=== PATIENT | male | born 1955 | race Caucasian/White ===

== ENCOUNTER 2018-06-24 08:02 | Inpatient (IN) | payer BC ==
[2018-06-17 11:17] LABS: BILIRUBIN,URINE NEGATIVE (NEGATIVE); BLOOD, URINE NEGATIVE (NEGATIVE); CLARITY/URINE SL HAZY (CLEAR); COLOR,URINE YELLOW (YELLOW); GLUCOSE,URINE NEGATIVE (NEGATIVE); KETONES,URINE NEGATIVE (NEGATIVE); LEUKOCYTE ESTERASE ,URINE NEGATIVE (NEGATIVE); NITRITE, URINE NEGATIVE (NEGATIVE); PH,URINE 5.5 (5.0-8.0); PROTEIN URINE NEGATIVE (NEGATIVE); UROBILINOGEN,URINE 0.2 (0.2-1.0)
[2018-06-17 11:41] LABS: CALCIUM 9.4 mg/dL (8.4-11.0); CREATININE 0.93 mg/dL (0.55-1.30); POTASSIUM 4.2 mmol/L (3.5-5.1)
[2018-06-17 12:12] LABS: BASOPHILS % (AUTO) 0.9 % (0.0-2.0); EOSINOPHILS % (AUTO) 2.8 % (0.0-4.0); HEMATOCRIT 48.8 % (36-54); HEMOGLOBIN 16.6 g/dL (14.0-18.0); LYMPHOCYTES # (AUTO) 1.4 K/uL (1.0-5.5); LYMPHOCYTES % (AUTO) 14.4 % (20.5-51.5); MEAN CORPUSCULAR HEMOGLOBIN 31 pg (27-31); MEAN CORPUSCULAR HGB CONC 34 % (32-36); MEAN CORPUSCULAR VOLUME 90 fL (79.0-98.0); MONOCYTES % (AUTO) 7.3 % (1.7-9.3); PLATELET COUNT (AUTO) 89 K/uL (130-430); RED BLOOD CELL COUNT(AUTO) 5.45 MIL/uL (4.2-6.2); RED CELL DISTRIBUTION WIDTH 13.5 % (9.0-15.0); WHITE BLOOD COUNT (AUTO) 9.4 K/uL (4.8-10.8)
[2018-06-17 12:13] LABS: BASOPHILS # (AUTO) 0.1 K/uL (0.0-0.2); EOSINOPHILS # (AUTO) 0.3 K/uL (0.0-0.4); MONOCYTES # (AUTO) 0.7 K/uL (0.0-1.0)
[2018-06-17 13:49] LABS: NEUTROPHILS % (AUTO) 74.6 % (40.0-70.0)
[~2018-06-24] VITALS: Ht 182.9 cm; Wt 109.8 kg
[~2018-06-24 08:02] MED LIST: GLU500 PO; IRBE300T40 PO; LIP20 PO; PRO40 PO; TAMS-11 PO; VITD2000 PO
[2018-06-24] MEDS ORDERED: CEFAZOLIN SOD 2 GM in D5W 50 ML IV ONE (08:15)
[2018-06-24 08:37] LABS: BASOPHILS # (AUTO) 0.1 K/uL (0.0-0.2); EOSINOPHILS # (AUTO) 0.3 K/uL (0.0-0.4); EOSINOPHILS % (AUTO) 2.8 % (0.0-4.0); HEMATOCRIT 50.9 % (36-54); HEMOGLOBIN 16.9 g/dL (14.0-18.0); LYMPHOCYTES # (AUTO) 1.3 K/uL (1.0-5.5); LYMPHOCYTES % (AUTO) 14.1 % (20.5-51.5); MEAN CORPUSCULAR HEMOGLOBIN 30 pg (27-31); MEAN CORPUSCULAR HGB CONC 33 % (32-36); MEAN CORPUSCULAR VOLUME 91 fL (79.0-98.0); MONOCYTES # (AUTO) 0.8 K/uL (0.0-1.0); MONOCYTES % (AUTO) 8.1 % (1.7-9.3); RED BLOOD CELL COUNT(AUTO) 5.58 MIL/uL (4.2-6.2); RED CELL DISTRIBUTION WIDTH 13.3 % (9.0-15.0); WHITE BLOOD COUNT (AUTO) 9.4 K/uL (4.8-10.8)
[2018-06-24 09:13] LABS: PLATELET COUNT (AUTO) 96 K/uL (130-430)
[2018-06-24] MEDS: ROPIVACAINE 0.2% 100 ML INJ SCH ×2 (10:06→21:40)
[2018-06-24] MEDS ORDERED: DIPHENHYDRAMINE INJ 50 MG/ML VIAL IVP PRN ×2 (10:15)
[2018-06-24] MEDS ORDERED: NALBUPHINE HCL 10 MG/ML AMP IVP PRN ×2 (10:15)
[2018-06-24] MEDS ORDERED: ONDANSETRON HCL 4 MG/2 ML VIAL IVP PRN ×2 (10:15)
[2018-06-24] MEDS ORDERED: KETOROLAC TROMETHAMINE 60 MG/2 ML VIAL IM PRN (10:15)
[2018-06-24] MEDS ORDERED: OXYCODONE/ACETAMINOPHEN *10*mg/325 mg TABLET PO PRN (10:15)
[2018-06-24] MEDS ORDERED: fentaNYL CITRATE/PF 100 MCG/2 ML AMP IVP PRN ×2 (10:15)
[2018-06-24] MEDS ORDERED: MORPHINE SULFATE 10MG/10ML PF AMP SP SCH (10:15)
[2018-06-24] MEDS ORDERED: NALOXONE HCL 0.4 MG/ML AMP (NARCAN) IVP PRN ×2 (10:15)
[2018-06-24] MEDS: VANCOMYCIN HCL 1,000 MG in NS 250 ML IV ONE ×2 (10:43→11:25)
[2018-06-24] MEDS ORDERED: NS IRRIG SOLN 1000 ML IR ONE (11:35)
[2018-06-24] MEDS ORDERED: BUPIVACAINE /PF 0.75% 10 ML VIAL INJ ONE (11:35)
[2018-06-24] MEDS ORDERED: PROPOFOL 200MG/ 20ML VIAL (DIPRIVAN) IV ONE (11:35)
[2018-06-24] MEDS ORDERED: TRANEXAMIC ACID 1,000 MG/10 ML VIAL IV ONE (11:35)
[2018-06-24] MEDS ORDERED: MORPHINE SULFATE 10MG/10ML PF AMP EP ONE (11:35)
[2018-06-24] MEDS ORDERED: EPINEPHrine 1 MG/ML AMP IV ONE (11:35)
[2018-06-24] MEDS ORDERED: MIDAZOLAM HCL 5 MG/5 ML VIAL IVP ONE (11:35)
[2018-06-24] MEDS ORDERED: ROPIVACAINE HCL/PF 0.2% (NAROPIN) 200 ML PLAST..BAG EP ONE (11:35)
[2018-06-24] MEDS ORDERED: ROPIVACAINE HCL/PF 5 MG/ML 0.5% 30 ML VIAL INJ ONE (11:35)
[2018-06-24] MEDS ORDERED: LIDOCAINE 1% 10 MG/ML, 20 ML MDV INJ ONE (11:35)
[2018-06-24] MEDS ORDERED: LR 1,000 ML IV.SOLN IV ONE (11:35)
[2018-06-24] MEDS ORDERED: POLYMYXIN 500,000/BACIT.10,000 UNITS in NS IRR 1 L IR ONE (12:31)
[2018-06-24] MEDS: D5/0.45 NS 1,000 ML IV SCH ×2 (14:23→21:16)
[2018-06-24] MEDS ORDERED: ACETAMINOPHEN 325 MG TABLET PO PRN (14:30)
[2018-06-24 15:23] VITALS: BP_SYST 137
[2018-06-24] MEDS: HYDROcodone/ACETAMIN 10-325 MG TAB PO PRN (17:04)
[2018-06-24] MEDS ORDERED: TRANEXAMIC ACID 1,000 MG in NS 50 ML IV ONE (17:30)
[2018-06-24] MEDS: ONDANSETRON HCL 4 MG/2 ML VIAL IVP PRN ×2 (17:37→21:15)
[2018-06-24 18:03] VITALS: BP_SYST 153
[2018-06-24] MEDS ORDERED: MORPHINE SULFATE 10 MG/ML VIAL IVP ONE (18:45)
[2018-06-24 19:45] VITALS: BP_SYST 125
[2018-06-24] MEDS ORDERED: PROMETHAZINE INJ.Non-Formulary 25 MG/ML AMP IM ONE (21:00)
[2018-06-24] MEDS: SENNOSIDES 8.6 MG TABLET PO SCH (21:15)
[2018-06-24] MEDS ORDERED: MORPHINE PCA 50 mg/50 mL NS 50 ML IV PRN (22:15)
[2018-06-24] MEDS ORDERED: MORPHINE SULFATE 10 MG/ML VIAL ONE (22:46)
[2018-06-25] VITALS (7 sets, daily range): BP systolic 122–148
[2018-06-25] MEDS: D5/0.45 NS 1,000 ML IV SCH ×3 (05:24→20:16)
[2018-06-25 06:52] LABS: CALCIUM 8.3 mg/dL (8.4-11.0); CREATININE 1.11 mg/dL (0.55-1.30); POTASSIUM 4.7 mmol/L (3.5-5.1)
[2018-06-25 07:03] LABS: BASOPHILS # (AUTO) 0.1 K/uL (0.0-0.2); BASOPHILS % (AUTO) 0.6 % (0.0-2.0); EOSINOPHILS # (AUTO) 0.2 K/uL (0.0-0.4); EOSINOPHILS % (AUTO) 1.6 % (0.0-4.0); HEMATOCRIT 43.6 % (36-54); HEMOGLOBIN 14.6 g/dL (14.0-18.0); LYMPHOCYTES # (AUTO) 0.9 K/uL (1.0-5.5); LYMPHOCYTES % (AUTO) 6.9 % (20.5-51.5); MEAN CORPUSCULAR HEMOGLOBIN 31 pg (27-31); MEAN CORPUSCULAR HGB CONC 34 % (32-36); MEAN CORPUSCULAR VOLUME 92 fL (79.0-98.0); MONOCYTES # (AUTO) 1.3 K/uL (0.0-1.0); NEUTROPHILS # (AUTO) 10.2 K/uL (1.8-7.7); NEUTROPHILS % (AUTO) 80.9 % (40.0-70.0); PLATELET COUNT (AUTO) 117 K/uL (130-430); RED BLOOD CELL COUNT(AUTO) 4.75 MIL/uL (4.2-6.2); RED CELL DISTRIBUTION WIDTH 13.4 % (9.0-15.0); WHITE BLOOD COUNT (AUTO) 12.6 K/uL (4.8-10.8)
[2018-06-25] MEDS: ASCORBIC ACID 500 MG TABLET PO SCH ×2 (08:40→20:10)
[2018-06-25] MEDS: MULTIVITAMINS TAB 1 TABLET PO SCH (08:41)
[2018-06-25] MEDS ORDERED: RIVAROXABAN 10 MG TABLET PO SCH (09:00)
[2018-06-25] MEDS ORDERED: MULTIVITAMINS TAB 1 TABLET PO SCH (09:00)
[2018-06-25] MEDS: FERROUS SULFATE 140 MG TABLET.ER PO SCH (09:36)
[2018-06-25] MEDS: RIVAROXABAN 10 MG TABLET PO SCH (09:38)
[2018-06-25] MEDS: ROPIVACAINE 0.2% 100 ML INJ SCH ×2 (14:10→22:38)
[2018-06-25] MEDS ORDERED: NALOXONE HCL 0.4 MG/ML AMP (NARCAN) IVP PRN (16:15)
[2018-06-25] MEDS: SENNOSIDES 8.6 MG TABLET PO SCH (20:10)
[2018-06-26 00:30] VITALS: BP_SYST 143
[2018-06-26 04:00] VITALS: BP_SYST 135
[2018-06-26] MEDS: D5/0.45 NS 1,000 ML IV SCH ×3 (04:08→22:23)
[2018-06-26 06:55] LABS: CALCIUM 8.3 mg/dL (8.4-11.0); CREATININE 1.06 mg/dL (0.55-1.30); GLUCOSE 144 mg/dL (70-99); SODIUM SERUM 128 mmol/L (136-145); UREA NITROGEN, BLOOD 14 mg/dL (8-21)
[2018-06-26 07:02] LABS: BASOPHILS % (AUTO) 0.3 % (0.0-2.0); EOSINOPHILS # (AUTO) 0.2 K/uL (0.0-0.4); HEMATOCRIT 39.4 % (36-54); HEMOGLOBIN 13.4 g/dL (14.0-18.0); LYMPHOCYTES # (AUTO) 1.1 K/uL (1.0-5.5); LYMPHOCYTES % (AUTO) 7.1 % (20.5-51.5); MEAN CORPUSCULAR HEMOGLOBIN 31 pg (27-31); MEAN CORPUSCULAR HGB CONC 34 % (32-36); MEAN CORPUSCULAR VOLUME 91 fL (79.0-98.0); MONOCYTES # (AUTO) 1.8 K/uL (0.0-1.0); MONOCYTES % (AUTO) 11.2 % (1.7-9.3); NEUTROPHILS # (AUTO) 12.7 K/uL (1.8-7.7); NEUTROPHILS % (AUTO) 80.4 % (40.0-70.0); PLATELET COUNT (AUTO) 109 K/uL (130-430); RED BLOOD CELL COUNT(AUTO) 4.35 MIL/uL (4.2-6.2); RED CELL DISTRIBUTION WIDTH 13.2 % (9.0-15.0); WHITE BLOOD COUNT (AUTO) 15.8 K/uL (4.8-10.8)
[2018-06-26 07:13] LABS: CHLORIDE 93 mmol/L (98-107); POTASSIUM 4.5 mmol/L (3.5-5.1)
[2018-06-26 07:19] LABS: ANION GAP < 3 (5-15); GFR AFRICAN AMERICAN 90 mL/min (>90)
[2018-06-26 08:18] VITALS: BP_SYST 131
[2018-06-26] MEDS: RIVAROXABAN 10 MG TABLET PO SCH (09:18)
[2018-06-26] MEDS: MULTIVITAMINS TAB 1 TABLET PO SCH (09:18)
[2018-06-26] MEDS: ASCORBIC ACID 500 MG TABLET PO SCH ×2 (09:18→21:12)
[2018-06-26] MEDS: FERROUS SULFATE 140 MG TABLET.ER PO SCH (09:19)
[2018-06-26] MEDS: ROPIVACAINE 0.2% 100 ML INJ SCH (11:10)
[2018-06-26 12:02] VITALS: BP_SYST 149
[2018-06-26] MEDS: HYDROcodone/ACETAMIN 10-325 MG TAB PO PRN ×2 (14:40→18:44)
[2018-06-26 16:00] VITALS: BP_SYST 159
[2018-06-26 20:00] VITALS: BP_SYST 121
[2018-06-26] MEDS ORDERED: IRBESARTAN 150 MG TABLET (AVAPRO) PO SCH (20:00)
[2018-06-26] MEDS ORDERED: ZOLPIDEM TARTRATE 5 MG TABLET PO PRN (20:15)
[2018-06-26] MEDS ORDERED: PANTOPRAZOLE SODIUM 40 MG TAB PO SCH (21:00)
[2018-06-26] MEDS ORDERED: LOSARTAN POTASSIUM 50 MG TABLET (COZAAR) PO SCH (21:00)
[2018-06-26] MEDS: SENNOSIDES 8.6 MG TABLET PO SCH (21:11)
[2018-06-27] MEDS: ROPIVACAINE 0.2% 100 ML INJ SCH (00:36)
[2018-06-27 00:52] VITALS: BP_SYST 133
[2018-06-27] MEDS: D5/0.45 NS 1,000 ML IV SCH ×2 (06:23→14:23)
[2018-06-27 06:48] LABS: BASOPHILS # (AUTO) 0.1 K/uL (0.0-0.2); BASOPHILS % (AUTO) 0.3 % (0.0-2.0); EOSINOPHILS # (AUTO) 0.4 K/uL (0.0-0.4); EOSINOPHILS % (AUTO) 2.3 % (0.0-4.0); HEMATOCRIT 39.8 % (36-54); HEMOGLOBIN 13.3 g/dL (14.0-18.0); LYMPHOCYTES # (AUTO) 1.1 K/uL (1.0-5.5); LYMPHOCYTES % (AUTO) 6.5 % (20.5-51.5); MEAN CORPUSCULAR HEMOGLOBIN 30 pg (27-31); MEAN CORPUSCULAR HGB CONC 33 % (32-36); MEAN CORPUSCULAR VOLUME 91 fL (79.0-98.0); MONOCYTES # (AUTO) 1.4 K/uL (0.0-1.0); MONOCYTES % (AUTO) 8.5 % (1.7-9.3); NEUTROPHILS # (AUTO) 13.7 K/uL (1.8-7.7); NEUTROPHILS % (AUTO) 82.4 % (40.0-70.0); PLATELET COUNT (AUTO) 126 K/uL (130-430); RED BLOOD CELL COUNT(AUTO) 4.38 MIL/uL (4.2-6.2); RED CELL DISTRIBUTION WIDTH 13.4 % (9.0-15.0); WHITE BLOOD COUNT (AUTO) 16.7 K/uL (4.8-10.8)
[2018-06-27 06:52] LABS: CALCIUM 8.6 mg/dL (8.4-11.0); CREATININE 1.01 mg/dL (0.55-1.30); POTASSIUM 4.1 mmol/L (3.5-5.1)
[2018-06-27] MEDS ORDERED: PANTOPRAZOLE SODIUM 40 MG TAB PO SCH (07:30)
[2018-06-27] MEDS ORDERED: metFORMIN HCL 500 MG TABLET PO SCH (08:00)
[2018-06-27 08:18] VITALS: BP_SYST 124
[2018-06-27] MEDS: ASCORBIC ACID 500 MG TABLET PO SCH (08:22)
[2018-06-27] MEDS: MULTIVITAMINS TAB 1 TABLET PO SCH (08:22)
[2018-06-27] MEDS: HYDROcodone/ACETAMIN 10-325 MG TAB PO PRN ×2 (08:23→12:44)
[2018-06-27] MEDS: FERROUS SULFATE 140 MG TABLET.ER PO SCH (08:23)
[2018-06-27] MEDS ORDERED: CHOLECALCIFEROL (VITAMIN D3) 2,000 UNIT TABLET PO SCH (09:00)
[2018-06-27] MEDS ORDERED: LOSARTAN POTASSIUM 50 MG TABLET (COZAAR) PO SCH (09:00)
[2018-06-27] MEDS ORDERED: DIPHENHYDRAMINE HCL 25 MG CAPSULE PO PRN (10:00)
[2018-06-27] MEDS ORDERED: ONDANSETRON HCL 4 MG/2 ML VIAL IVP PRN (10:00)
[2018-06-27] MEDS: RIVAROXABAN 10 MG TABLET PO SCH (10:05)
[2018-06-27 11:24] VITALS: BP_SYST 121
[2018-06-27] MEDS ORDERED: HYDR-4274 PO (13:35)
[2018-06-27] MEDS ORDERED: RIVA10TA PO (13:36)
[2018-06-27 15:18] VITALS: BP_SYST 118
[2018-06-27 15:46] VITALS: BP_SYST 138
[2018-06-27] MEDS ORDERED: ATORVASTATIN 20 MG TABLET PO SCH (21:00)
== END 2018-06-27 17:50 | disposition home health service (06) | DRG 470 ==
LOC: SMU 08:02 → STU 21:32 → SMU 06-26 23:11
PROVIDERS: ADMIT Orthopaedic Surgery; ATTEND Orthopaedic Surgery
PROC: 30233R1 Transfusion of Nonautologous Platelets into Peripheral Vein, Percutaneous Approach (ICD-10-PCS; 2018-06-24)
PROC: 0SRD0J9 Replacement of Left Knee Joint with Synthetic Substitute, Cemented, Open Approach (ICD-10-PCS; principal; 2018-06-24 11:30)
DX: M17.12 Unilateral primary osteoarthritis, left knee (principal); D69.6 Thrombocytopenia, unspecified; E11.9 Type 2 diabetes mellitus without complications; E78.5 Hyperlipidemia, unspecified; Z96.652 Presence of left artificial knee joint; I10 Essential (primary) hypertension; Z79.01 Long term (current) use of anticoagulants; Z85.820 Personal history of malignant melanoma of skin; Z90.49 Acquired absence of other specified parts of digestive tract; Z79.84 Long term (current) use of oral hypoglycemic drugs
CPT/HCPCS: 36415; 71046-TC; 73560-TC; 80048; 81003; 85025; 86886; 86900; 86901; 87081; 88305; 88307; 88311; 97110-GP; 97112-GP; 97116-GP; 97530-GP; C1713; C1776; G0378; J0171; J0690; J1885; J2001; J2250; J2270; J2274; J2405; J2550; J2704; J2795; J3370; J3490; J7050; J7060; J7120; P9034

== ENCOUNTER 2018-06-29 14:23 | Inpatient (IN) | payer BC ==
[~2018-06-29] VITALS: Ht 182.9 cm; Wt 110.7 kg
[~2018-06-29 14:23] MED LIST changes: +HYDR-4274 PO; +RIVA10TA PO
[2018-06-29 14:30] VITALS: BP_SYST 116
[2018-06-29] MEDS ORDERED: MORPHINE 4 MG/ML INJ. SYRINGE IVP ONE (15:00)
[2018-06-29] MEDS ORDERED: NACL 0.9% 1,000 ML IV ONE (15:00)
[2018-06-29] MEDS ORDERED: VANCOMYCIN HCL 1,000 MG in NS 250 ML IV ONE ×2 (15:15)
[2018-06-29] MEDS ORDERED: cefTRIAXone 2 GM VIAL IM ONE (15:15)
[2018-06-29 15:20] LABS: BASOPHILS % (AUTO) 0.2 % (0.0-2.0); EOSINOPHILS # (AUTO) 0.4 K/uL (0.0-0.4); EOSINOPHILS % (AUTO) 2.7 % (0.0-4.0); HEMATOCRIT 36.7 % (36-54); HEMOGLOBIN 12.5 g/dL (14.0-18.0); LYMPHOCYTES # (AUTO) 0.7 K/uL (1.0-5.5); LYMPHOCYTES % (AUTO) 5.3 % (20.5-51.5); MEAN CORPUSCULAR HEMOGLOBIN 31 pg (27-31); MEAN CORPUSCULAR HGB CONC 34 % (32-36); MEAN CORPUSCULAR VOLUME 90 fL (79.0-98.0); MONOCYTES # (AUTO) 1.3 K/uL (0.0-1.0); MONOCYTES % (AUTO) 9.6 % (1.7-9.3); NEUTROPHILS # (AUTO) 11.4 K/uL (1.8-7.7); NEUTROPHILS % (AUTO) 82.2 % (40.0-70.0); PLATELET COUNT (AUTO) 170 K/uL (130-430); RED BLOOD CELL COUNT(AUTO) 4.09 MIL/uL (4.2-6.2); RED CELL DISTRIBUTION WIDTH 13.2 % (9.0-15.0); WHITE BLOOD COUNT (AUTO) 13.9 K/uL (4.8-10.8)
[2018-06-29] MEDS ORDERED: cefTRIAXone 2 GM VIAL ONE (15:25)
[2018-06-29 15:34] LABS: CALCIUM 8.8 mg/dL (8.4-11.0); CREATININE 1.13 mg/dL (0.55-1.30); POTASSIUM 3.7 mmol/L (3.5-5.1)
[2018-06-29 15:38] LABS: PROTHROMBIN TIME 10.3 SECS (9.5-12.5)
[2018-06-29 15:39] LABS: ALBUMIN 2.6 g/dL (3.4-4.8); TOTAL BILIRUBIN 1.9 mg/dL (0.0-1.0)
[2018-06-29] MEDS ORDERED: MILK OF MAGNESIA 30 ML UDC PO PRN (15:45)
[2018-06-29] MEDS: D5/0.45 NS 1,000 ML IV SCH ×2 (16:03→21:02)
[2018-06-29] MEDS ORDERED: VANCOMYCIN HCL 1000 MG/VIAL IV ONE ×2 (16:04→20:34)
[2018-06-29] MEDS ORDERED: NACL 0.9% 2,500 ML IV ONE (16:30)
[2018-06-29 17:15] VITALS: BP_SYST 133
[2018-06-29 17:48] LABS: BILIRUBIN,URINE NEGATIVE (NEGATIVE); BLOOD, URINE NEGATIVE (NEGATIVE); CLARITY/URINE SL HAZY (CLEAR); COLOR,URINE AMBER (YELLOW); GLUCOSE,URINE NEGATIVE (NEGATIVE); KETONES,URINE NEGATIVE (NEGATIVE); LEUKOCYTE ESTERASE ,URINE NEGATIVE (NEGATIVE); NITRITE, URINE NEGATIVE (NEGATIVE); PROTEIN URINE 1+ (NEGATIVE)
[2018-06-29] MEDS ORDERED: VANCOMYCIN HCL 1 GM/NS PREMIX 250 ML IV SCH (18:00)
[2018-06-29 18:03] LABS: BACTERIA,URINE FEW /HPF (None Seen); COARSE GRANULAR CASTS,URINE 0-10 /LPF (None Seen); FINE GRANULAR CASTS,URINE 0-10 /LPF (None Seen); MUCUS,URINE 3+ /LPF (None Seen); RBC,URINE 0-3 /HPF (0-3)
[2018-06-29] MEDS ORDERED: NON-FORMULARY MEDICATION (Tamsulosin Hcl (Flomax) 0.4 MG) PO SCH (18:15)
[2018-06-29] MEDS: HYDROcodone/ACETAMIN 5-325 MG TAB (NORCO/ VICODIN) PO PRN (18:35)
[2018-06-29 20:40] VITALS: BP_SYST 119
[2018-06-29 21:00] VITALS: BP_SYST 119
[2018-06-29] MEDS: TAMSULOSIN HCL 0.4 MG CAP PO SCH (21:00)
[2018-06-29] MEDS: ATORVASTATIN 20 MG TABLET PO SCH (21:00)
[2018-06-29] MEDS: NORMAL SALINE 5 ML DISP.SYRIN IVF SCH (21:01)
[2018-06-29] MEDS: SENNOSIDES 8.6 MG TABLET PO SCH (21:01)
[2018-06-29] MEDS: ZOLPIDEM TARTRATE 5 MG TABLET PO PRN (21:07)
[2018-06-29 22:46] VITALS: BP_SYST 124
[2018-06-30] MEDS: HYDROcodone/ACETAMIN 5-325 MG TAB (NORCO/ VICODIN) PO PRN (02:35)
[2018-06-30 04:38] VITALS: BP_SYST 121
[2018-06-30] MEDS: PANTOPRAZOLE SODIUM 40 MG TAB PO SCH (06:04)
[2018-06-30] MEDS: NORMAL SALINE 5 ML DISP.SYRIN IVF SCH ×3 (06:05→21:39)
[2018-06-30] MEDS: HYDROcodone/ACETAMIN 10-325 MG TAB PO PRN ×4 (06:36→20:18)
[2018-06-30 06:40] LABS: BASOPHILS # (AUTO) 0.1 K/uL (0.0-0.2); BASOPHILS % (AUTO) 0.6 % (0.0-2.0); EOSINOPHILS # (AUTO) 0.5 K/uL (0.0-0.4); EOSINOPHILS % (AUTO) 4.2 % (0.0-4.0); HEMATOCRIT 34.4 % (36-54); HEMOGLOBIN 11.5 g/dL (14.0-18.0); LYMPHOCYTES # (AUTO) 1.1 K/uL (1.0-5.5); LYMPHOCYTES % (AUTO) 9.5 % (20.5-51.5); MEAN CORPUSCULAR HEMOGLOBIN 31 pg (27-31); MEAN CORPUSCULAR HGB CONC 33 % (32-36); MEAN CORPUSCULAR VOLUME 92 fL (79.0-98.0); MONOCYTES # (AUTO) 1.2 K/uL (0.0-1.0); MONOCYTES % (AUTO) 10.3 % (1.7-9.3); NEUTROPHILS # (AUTO) 8.8 K/uL (1.8-7.7); NEUTROPHILS % (AUTO) 75.4 % (40.0-70.0); PLATELET COUNT (AUTO) 147 K/uL (130-430); RED BLOOD CELL COUNT(AUTO) 3.76 MIL/uL (4.2-6.2); RED CELL DISTRIBUTION WIDTH 13.4 % (9.0-15.0); WHITE BLOOD COUNT (AUTO) 11.7 K/uL (4.8-10.8)
[2018-06-30 06:45] LABS: CALCIUM 8.2 mg/dL (8.4-11.0); CREATININE 0.92 mg/dL (0.55-1.30); POTASSIUM 3.8 mmol/L (3.5-5.1)
[2018-06-30 08:01] VITALS: BP_SYST 128
[2018-06-30 08:17] LABS: ERYTHROCYTE SEDIMENTATION RATE 72 MM/HR (0-15)
[2018-06-30] MEDS: ASCORBIC ACID 500 MG TABLET PO SCH ×2 (08:31→20:18)
[2018-06-30] MEDS: LOSARTAN POTASSIUM 50 MG TABLET (COZAAR) PO SCH (08:31)
[2018-06-30] MEDS: CHOLECALCIFEROL (VITAMIN D3) 2,000 UNIT TABLET PO SCH (08:31)
[2018-06-30] MEDS: MULTIVITAMINS TAB 1 TABLET PO SCH (08:32)
[2018-06-30] MEDS: metFORMIN HCL 500 MG TABLET PO SCH (08:32)
[2018-06-30] MEDS: RIVAROXABAN 10 MG TABLET PO SCH (08:33)
[2018-06-30] MEDS ORDERED: PANTOPRAZOLE SODIUM 40 MG TAB PO ONE (09:00)
[2018-06-30] MEDS ORDERED: MULTIVITAMINS TAB 1 TABLET PO SCH ×2 (09:00)
[2018-06-30] MEDS ORDERED: IRBESARTAN 150 MG TABLET (AVAPRO) PO SCH (09:00)
[2018-06-30] MEDS ORDERED: RIVAROXABAN 10 MG TABLET PO SCH (09:00)
[2018-06-30 11:18] VITALS: BP_SYST 139
[2018-06-30] MEDS: VANCOMYCIN HCL 1,750 MG in NS 500 ML IV SCH (14:50)
[2018-06-30 15:29] VITALS: BP_SYST 137
[2018-06-30] MEDS: MORPHINE 4 MG/ML INJ. SYRINGE IVP PRN (18:39)
[2018-06-30 20:00] VITALS: BP_SYST 134
[2018-06-30] MEDS: ATORVASTATIN 20 MG TABLET PO SCH (20:17)
[2018-06-30] MEDS: SENNOSIDES 8.6 MG TABLET PO SCH (20:18)
[2018-06-30] MEDS: TAMSULOSIN HCL 0.4 MG CAP PO SCH (20:18)
[2018-06-30] MEDS: D5/0.45 NS 1,000 ML IV SCH (20:20)
[2018-06-30] MEDS: ZOLPIDEM TARTRATE 5 MG TABLET PO PRN (23:07)
[2018-07-01 00:26] VITALS: BP_SYST 136
[2018-07-01] MEDS: MORPHINE 4 MG/ML INJ. SYRINGE IVP PRN ×3 (00:50→20:18)
[2018-07-01] MEDS: VANCOMYCIN HCL 1,750 MG in NS 500 ML IV SCH ×2 (02:13→14:26)
[2018-07-01] MEDS: PANTOPRAZOLE SODIUM 40 MG TAB PO SCH (06:47)
[2018-07-01] MEDS: NORMAL SALINE 5 ML DISP.SYRIN IVF SCH ×3 (06:48→20:19)
[2018-07-01 07:48] VITALS: BP_SYST 152
[2018-07-01] MEDS: CHOLECALCIFEROL (VITAMIN D3) 2,000 UNIT TABLET PO SCH (08:00)
[2018-07-01] MEDS: MULTIVITAMINS TAB 1 TABLET PO SCH (08:01)
[2018-07-01] MEDS: ASCORBIC ACID 500 MG TABLET PO SCH ×2 (08:01→20:19)
[2018-07-01] MEDS: LOSARTAN POTASSIUM 50 MG TABLET (COZAAR) PO SCH (08:01)
[2018-07-01] MEDS: metFORMIN HCL 500 MG TABLET PO SCH (08:02)
[2018-07-01] MEDS: HYDROcodone/ACETAMIN 10-325 MG TAB PO PRN ×2 (08:03→12:27)
[2018-07-01] MEDS: RIVAROXABAN 10 MG TABLET PO SCH (08:06)
[2018-07-01 11:21] VITALS: BP_SYST 139
[2018-07-01 16:52] VITALS: BP_SYST 137
[2018-07-01] MEDS: D5/0.45 NS 1,000 ML IV SCH (18:09)
[2018-07-01] MEDS: AMPICILLIN SODIUM/SULBACTAM NA 3 GM in NS 100 ML IV SCH (18:10)
[2018-07-01] MEDS: ATORVASTATIN 20 MG TABLET PO SCH (20:18)
[2018-07-01] MEDS: TAMSULOSIN HCL 0.4 MG CAP PO SCH (20:18)
[2018-07-01] MEDS: SENNOSIDES 8.6 MG TABLET PO SCH (20:19)
[2018-07-01] MEDS: ZOLPIDEM TARTRATE 5 MG TABLET PO PRN (22:27)
[2018-07-02] MEDS: AMPICILLIN SODIUM/SULBACTAM NA 3 GM in NS 100 ML IV SCH ×5 (00:04→23:04)
[2018-07-02 00:15] VITALS: BP_SYST 143
[2018-07-02] MEDS: MORPHINE 4 MG/ML INJ. SYRINGE IVP PRN (02:42)
[2018-07-02] MEDS: VANCOMYCIN HCL 1,750 MG in NS 500 ML IV SCH ×2 (02:42→14:16)
[2018-07-02 06:29] LABS: CALCIUM 8.3 mg/dL (8.4-11.0); CREATININE 0.89 mg/dL (0.55-1.30)
[2018-07-02] MEDS: PANTOPRAZOLE SODIUM 40 MG TAB PO SCH (06:29)
[2018-07-02] MEDS: NORMAL SALINE 5 ML DISP.SYRIN IVF SCH ×3 (06:30→22:58)
[2018-07-02 06:39] LABS: BASOPHILS # (AUTO) 0.1 K/uL (0.0-0.2); BASOPHILS % (AUTO) 0.6 % (0.0-2.0); EOSINOPHILS # (AUTO) 0.6 K/uL (0.0-0.4); EOSINOPHILS % (AUTO) 4.2 % (0.0-4.0); HEMATOCRIT 34.7 % (36-54); HEMOGLOBIN 11.5 g/dL (14.0-18.0); LYMPHOCYTES % (AUTO) 6.8 % (20.5-51.5); MEAN CORPUSCULAR HEMOGLOBIN 30 pg (27-31); MEAN CORPUSCULAR HGB CONC 33 % (32-36); MEAN CORPUSCULAR VOLUME 91 fL (79.0-98.0); MONOCYTES # (AUTO) 1.2 K/uL (0.0-1.0); NEUTROPHILS # (AUTO) 11.7 K/uL (1.8-7.7); NEUTROPHILS % (AUTO) 80.4 % (40.0-70.0); PLATELET COUNT (AUTO) 194 K/uL (130-430); RED BLOOD CELL COUNT(AUTO) 3.83 MIL/uL (4.2-6.2); RED CELL DISTRIBUTION WIDTH 13.6 % (9.0-15.0); WHITE BLOOD COUNT (AUTO) 14.6 K/uL (4.8-10.8)
[2018-07-02 06:40] LABS: ALBUMIN 2.3 g/dL (3.4-4.8); TOTAL BILIRUBIN 1.4 mg/dL (0.0-1.0)
[2018-07-02 07:55] VITALS: BP_SYST 146
[2018-07-02] MEDS: CHOLECALCIFEROL (VITAMIN D3) 2,000 UNIT TABLET PO SCH (08:13)
[2018-07-02] MEDS: MULTIVITAMINS TAB 1 TABLET PO SCH (08:13)
[2018-07-02] MEDS: ASCORBIC ACID 500 MG TABLET PO SCH ×2 (08:13→20:30)
[2018-07-02] MEDS: HYDROcodone/ACETAMIN 10-325 MG TAB PO PRN ×4 (08:14→22:55)
[2018-07-02] MEDS: metFORMIN HCL 500 MG TABLET PO SCH (08:14)
[2018-07-02] MEDS: LOSARTAN POTASSIUM 50 MG TABLET (COZAAR) PO SCH (08:15)
[2018-07-02] MEDS: RIVAROXABAN 10 MG TABLET PO SCH (08:16)
[2018-07-02 08:59] LABS: ERYTHROCYTE SEDIMENTATION RATE 87 MM/HR (0-15)
[2018-07-02] MEDS: D5/0.45 NS 1,000 ML IV SCH (10:18)
[2018-07-02 12:39] VITALS: BP_SYST 155
[2018-07-02 12:43] LABS: INR 1.1 (0.80-1.20); PROTHROMBIN TIME 11.4 SECS (9.5-12.5)
[2018-07-02 16:33] VITALS: BP_SYST 159
[2018-07-02 19:20] VITALS: BP_SYST 128
[2018-07-02] MEDS: TAMSULOSIN HCL 0.4 MG CAP PO SCH (20:30)
[2018-07-02] MEDS: ATORVASTATIN 20 MG TABLET PO SCH (20:30)
[2018-07-02] MEDS: SENNOSIDES 8.6 MG TABLET PO SCH (20:30)
[2018-07-02] MEDS: ZOLPIDEM TARTRATE 5 MG TABLET PO PRN (22:56)
[2018-07-02 23:53] VITALS: BP_SYST 147
[2018-07-03 05:33] LABS: BASOPHILS # (AUTO) 0.1 K/uL (0.0-0.2); BASOPHILS % (AUTO) 0.6 % (0.0-2.0); EOSINOPHILS # (AUTO) 0.8 K/uL (0.0-0.4); EOSINOPHILS % (AUTO) 5.8 % (0.0-4.0); HEMATOCRIT 37.8 % (36-54); HEMOGLOBIN 12.7 g/dL (14.0-18.0); LYMPHOCYTES % (AUTO) 7.5 % (20.5-51.5); MEAN CORPUSCULAR HEMOGLOBIN 31 pg (27-31); MEAN CORPUSCULAR HGB CONC 34 % (32-36); MEAN CORPUSCULAR VOLUME 91 fL (79.0-98.0); MONOCYTES # (AUTO) 1.3 K/uL (0.0-1.0); MONOCYTES % (AUTO) 9.5 % (1.7-9.3); NEUTROPHILS # (AUTO) 10.2 K/uL (1.8-7.7); NEUTROPHILS % (AUTO) 76.6 % (40.0-70.0); PLATELET COUNT (AUTO) 210 K/uL (130-430); RED BLOOD CELL COUNT(AUTO) 4.17 MIL/uL (4.2-6.2); RED CELL DISTRIBUTION WIDTH 13.8 % (9.0-15.0); WHITE BLOOD COUNT (AUTO) 13.4 K/uL (4.8-10.8)
[2018-07-03 05:41] LABS: CREATININE 0.95 mg/dL (0.55-1.30); POTASSIUM 4.2 mmol/L (3.5-5.1)
[2018-07-03] MEDS: VANCOMYCIN HCL 1,750 MG in NS 500 ML IV SCH ×2 (05:49→13:59)
[2018-07-03] MEDS: AMPICILLIN SODIUM/SULBACTAM NA 3 GM in NS 100 ML IV SCH ×4 (05:52→22:57)
[2018-07-03] MEDS: NORMAL SALINE 5 ML DISP.SYRIN IVF SCH ×3 (05:54→21:17)
[2018-07-03] MEDS: PANTOPRAZOLE SODIUM 40 MG TAB PO SCH (06:00)
[2018-07-03 07:36] VITALS: BP_SYST 138
[2018-07-03] MEDS: CHOLECALCIFEROL (VITAMIN D3) 2,000 UNIT TABLET PO SCH (08:04)
[2018-07-03] MEDS: HYDROcodone/ACETAMIN 10-325 MG TAB PO PRN ×4 (08:04→21:12)
[2018-07-03] MEDS: RIVAROXABAN 10 MG TABLET PO SCH (08:05)
[2018-07-03] MEDS: LOSARTAN POTASSIUM 50 MG TABLET (COZAAR) PO SCH (08:05)
[2018-07-03] MEDS: ASCORBIC ACID 500 MG TABLET PO SCH ×2 (08:06→21:12)
[2018-07-03] MEDS: MULTIVITAMINS TAB 1 TABLET PO SCH (08:07)
[2018-07-03] MEDS: metFORMIN HCL 500 MG TABLET PO SCH (08:07)
[2018-07-03 14:00] VITALS: BP_SYST 138
[2018-07-03 16:37] VITALS: BP_SYST 129
[2018-07-03 20:05] VITALS: BP_SYST 140
[2018-07-03] MEDS: TAMSULOSIN HCL 0.4 MG CAP PO SCH (21:11)
[2018-07-03] MEDS: SENNOSIDES 8.6 MG TABLET PO SCH (21:11)
[2018-07-03] MEDS: ATORVASTATIN 20 MG TABLET PO SCH (21:12)
[2018-07-03] MEDS: ZOLPIDEM TARTRATE 5 MG TABLET PO PRN (22:57)
[2018-07-04 00:56] VITALS: BP_SYST 100
[2018-07-04] MEDS: VANCOMYCIN HCL 1,750 MG in NS 500 ML IV SCH ×2 (02:34→14:01)
[2018-07-04] MEDS: PANTOPRAZOLE SODIUM 40 MG TAB PO SCH (06:07)
[2018-07-04] MEDS: NORMAL SALINE 5 ML DISP.SYRIN IVF SCH ×2 (06:07→14:03)
[2018-07-04] MEDS: AMPICILLIN SODIUM/SULBACTAM NA 3 GM in NS 100 ML IV SCH ×2 (06:08→11:43)
[2018-07-04] MEDS: HYDROcodone/ACETAMIN 10-325 MG TAB PO PRN ×2 (06:20→12:55)
[2018-07-04 06:43] LABS: BASOPHILS # (AUTO) 0.1 K/uL (0.0-0.2); BASOPHILS % (AUTO) 0.8 % (0.0-2.0); EOSINOPHILS # (AUTO) 0.9 K/uL (0.0-0.4); EOSINOPHILS % (AUTO) 7.8 % (0.0-4.0); HEMATOCRIT 37.4 % (36-54); HEMOGLOBIN 12.3 g/dL (14.0-18.0); LYMPHOCYTES # (AUTO) 1.1 K/uL (1.0-5.5); LYMPHOCYTES % (AUTO) 9.6 % (20.5-51.5); MEAN CORPUSCULAR HEMOGLOBIN 30 pg (27-31); MEAN CORPUSCULAR HGB CONC 33 % (32-36); MEAN CORPUSCULAR VOLUME 91 fL (79.0-98.0); MONOCYTES # (AUTO) 1.1 K/uL (0.0-1.0); MONOCYTES % (AUTO) 9.2 % (1.7-9.3); NEUTROPHILS # (AUTO) 8.7 K/uL (1.8-7.7); NEUTROPHILS % (AUTO) 72.6 % (40.0-70.0); PLATELET COUNT (AUTO) 205 K/uL (130-430); RED BLOOD CELL COUNT(AUTO) 4.12 MIL/uL (4.2-6.2); RED CELL DISTRIBUTION WIDTH 13.6 % (9.0-15.0); WHITE BLOOD COUNT (AUTO) 11.9 K/uL (4.8-10.8)
[2018-07-04] MEDS: RIVAROXABAN 10 MG TABLET PO SCH (08:09)
[2018-07-04] MEDS: MULTIVITAMINS TAB 1 TABLET PO SCH (08:10)
[2018-07-04] MEDS: CHOLECALCIFEROL (VITAMIN D3) 2,000 UNIT TABLET PO SCH (08:15)
[2018-07-04] MEDS: LOSARTAN POTASSIUM 50 MG TABLET (COZAAR) PO SCH (08:15)
[2018-07-04] MEDS: ASCORBIC ACID 500 MG TABLET PO SCH (08:16)
[2018-07-04] MEDS: metFORMIN HCL 500 MG TABLET PO SCH (08:16)
[2018-07-04 08:45] VITALS: BP_SYST 137
[2018-07-04] MEDS ORDERED: DOXY100C PO (10:03)
[2018-07-04] MEDS ORDERED: ERTA1VIA3 IJ (10:03)
[2018-07-04] MEDS ORDERED: LACTOBACILLUS RHAMNOSUS GG 1 CAP CAPSULE PO ONE (11:45)
[2018-07-04 13:37] VITALS: BP_SYST 140
[2018-07-04 14:17] VITALS: BP_SYST 140
[2018-07-04 16:32] VITALS: BP_SYST 142
[2018-07-04] MEDS ORDERED: LACTOBACILLUS RHAMNOSUS GG 1 CAP CAPSULE PO SCH (21:00)
== END 2018-07-04 16:25 | disposition home health service (06) | DRG 863 ==
LOC: SED 14:23 → SMU 15:35 → STU 06-30 18:35 → SMU 07-01 18:35
PROVIDERS: ADMIT Orthopaedic Surgery; ATTEND Internal Medicine Cardiovascular Disease
PROC: 02HV33Z Insertion of Infusion Device into Superior Vena Cava, Percutaneous Approach (ICD-10-PCS; principal; 2018-07-04)
PROC: B548ZZA Ultrasonography of Superior Vena Cava, Guidance (ICD-10-PCS; 2018-07-04)
DX: T81.41XA Infection following a procedure, superficial incisional surgical site, initial encounter (principal); L76.32 Postprocedural hematoma of skin and subcutaneous tissue following other procedure; L03.116 Cellulitis of left lower limb; D69.6 Thrombocytopenia, unspecified; E11.9 Type 2 diabetes mellitus without complications; E66.9 Obesity, unspecified; E78.5 Hyperlipidemia, unspecified; I10 Essential (primary) hypertension; Z96.652 Presence of left artificial knee joint; E78.00 Pure hypercholesterolemia, unspecified; Y83.8 Other surgical procedures as the cause of abnormal reaction of the patient, or of later complication, without mention of misadventure at the time of the procedure; Y79.8 Miscellaneous orthopedic devices associated with adverse incidents, not elsewhere classified; R19.7 Diarrhea, unspecified; R58 Hemorrhage, not elsewhere classified; Z90.49 Acquired absence of other specified parts of digestive tract; Z79.899 Other long term (current) drug therapy; Z79.82 Long term (current) use of aspirin; Z68.33 Body mass index [BMI] 33.0-33.9, adult
CPT/HCPCS: 36415; 71045; 73560-TC; 73590-TC; 80048; 80053; 80202-TC; 81000-TC; 83605; 85025; 85610-TC; 85651-TC; 85730-TC; 87040-TC; 87081; 93005; 93971; 97110-GP; 97116-GP; 97530-GP; 99285; C1751; G0378; J0295; J0696; J2270; J3370; J7030; J7040; J7050; J7060